=== PATIENT | male | born 1955 | race Caucasian/White ===

== ENCOUNTER 2018-08-26 12:19 | Emergency (ER) | payer OTHER ==
[~2018-08-26] VITALS: Ht 177.8 cm; Wt 75.7 kg
[~2018-08-26 12:19] MED LIST: AMOXICILLIN500 MG PO; CLEOCIN HCL300 MG PO; CLEOCIN150 MG PO; CLINDAMYCIN HC300 MG PO; Diabeta,Micron2.5 MG PO; GABAPENTIN300 MG PO; GLYBURIDE1.25 MG PO; HYDROCODONE BIT1 T11 PO; LISINOPRIL10 MG PO; MOTRIN800 MG PO; NKHM; ORAL DIABETIC MED; PERCOCET 325 MG1 TA5 PO; PROPRANOLOL10 MG PO
== END 2018-08-26 15:07 | disposition home or self-care (01) ==
LOC: ED 12:19
DX: S90.31XA Contusion of right foot, initial encounter (principal); S90.111A Contusion of right great toe without damage to nail, initial encounter; S90.121A Contusion of right lesser toe(s) without damage to nail, initial encounter; E11.40 Type 2 diabetes mellitus with diabetic neuropathy, unspecified; W20.8XXA Other cause of strike by thrown, projected or falling object, initial encounter; Y93.89 Activity, other specified; Y92.59 Other trade areas as the place of occurrence of the external cause; Y99.8 Other external cause status

== ENCOUNTER 2019-06-10 09:00 | Emergency (ER) | payer OTHER ==
[~2019-06-10] VITALS: Ht 175.2 cm; Wt 81.2 kg
[2019-06-10] MEDS ORDERED: CYCLOBENZAPRINE5 M3 PO (09:30)
== END 2019-06-10 10:55 | disposition home or self-care (01) ==
LOC: ED 09:00
DX: M43.6 Torticollis (principal); I10 Essential (primary) hypertension; E11.9 Type 2 diabetes mellitus without complications; F17.200 Nicotine dependence, unspecified, uncomplicated; Z79.899 Other long term (current) drug therapy

== ENCOUNTER → 2022-02-14 | Outpatient (CLI) | payer OTHER ==
[~2022-02-14] MED LIST changes: +CYCLOBENZAPRINE5 M3 PO
== END | disposition home or self-care (01) ==
LOC: CT 01:26
PROVIDERS: ATTEND Internal Medicine
DX: N26.1 Atrophy of kidney (terminal) (principal); R63.4 Abnormal weight loss; K76.0 Fatty (change of) liver, not elsewhere classified; I25.10 Atherosclerotic heart disease of native coronary artery without angina pectoris; D50.9 Iron deficiency anemia, unspecified; K59.00 Constipation, unspecified

== ENCOUNTER 2022-10-31 15:34 | Emergency (ER) | payer MEDICARE ==
[~2022-10-31] VITALS: Wt 72.6 kg
[2022-10-31] MEDS ORDERED: AMOXICILLIN500 M2 PO (16:52)
[2022-10-31] MEDS ORDERED: HYDROCODONE-AC1 EAC1 PO (16:52)
== END 2022-10-31 16:55 | disposition home or self-care (01) ==
LOC: ED 15:34
DX: K08.89 Other specified disorders of teeth and supporting structures (principal); Z87.891 Personal history of nicotine dependence

== ENCOUNTER 2025-06-27 08:54 | Emergency (ER) | payer OTHER ==
[~2025-06-27] VITALS: Ht 175.2 cm; Wt 69.9 kg
[~2025-06-27 08:54] MED LIST changes: +AMOXICILLIN500 M2 PO; +HYDROCODONE-AC1 EAC1 PO
[2025-06-27] MEDS ORDERED: TYLE3UD PO (09:17)
[2025-06-27] MEDS ORDERED: CLINDAMYCIN HC300 MG PO (09:17)
== END 2025-06-27 09:25 | disposition home or self-care (01) ==
LOC: ED 08:54
DX: K02.9 Dental caries, unspecified (principal); Z79.899 Other long term (current) drug therapy; Z79.84 Long term (current) use of oral hypoglycemic drugs